=== PATIENT | female | born 1955 | race Hispanic/Latino ===

== ENCOUNTER → 2020-03-01 | Day surgery (SDC) | payer OTHER ==
[~2020-03-01] MED LIST: CO Q10100 MG PO; DOXYCYCLINE HY100 MG PO; FENTANYL CITRATE/PF 100MCG/2 ML INJ ONE; FISH OIL 1,001000 M1 PO; MIDAZOLAM HCL 2 MG/2 ML VIAL ONE; PANTOPRAZOLE SO40 MG PO; PROPOFOL IV EMULSION 10 MG/ML 50 ML VIAL ONE; VIT B3 PO
--- NOTE | 2020-03-01 07:10 | NUR ---
SPIRITUAL CARE - Pre-Surgery Assessment: Pt in bed. Pt reported supportive attention from family and friends. Intervention: I provided pastoral presence, hospitality, and sympathetic listening. I acquainted pt with availability of application coordinator while hospitalized. Outcome: Pt expressed appreciation for visit. No need for follow up indicated at this time. YANE Yehlain Spiritual Care Department O: [phone]
[2020-03-01 08:25] VITALS: BP 106/61
--- NOTE | 2020-03-01 10:09 | Operative Report ---
DATE OF PROCEDURE: 03/01/2020 SURGEON: Bandar Christian MD PROCEDURE: EGD with dilatation and biopsies. INDICATIONS FOR EGD: Dysphagia, upper abdominal pain. MEDICATIONS: The patient was done under MAC, please see anesthesiologist's note. PROCEDURE IN DETAIL: With the patient in left lateral decubitus position, flexible fiberoptic Olympus gastroscope was introduced into the esophagus under direct visualization without any difficulty. There was some patchy erythema noted in distal esophagus. A mild stricture was noted at the GE junction that was dilated to size 52-[place]. The scope was then advanced with ease into the stomach. Mucosa overlying the antrum and the body revealed some patchy erythema and moderate edema, and biopsies were obtained and sent to stain for H pylori. The pylorus was of normal contour and shape, was intubated with ease and the scope was advanced all the way to the second portion of the duodenum. Biopsies were obtained from the proximal second portion and duodenal bulb to rule out sprue. The scope was then withdrawn back into the stomach and retroflexed mucosa overlying the fundus and cardia appeared to be within normal limits. The scope was then straightened out, it was subsequently withdrawn, patient tolerated the procedure well. IMPRESSION: 1. Distal esophagitis, mild. 2. Esophageal stricture gastroesophageal junction, dilated to size 52-[place]. 3. Gastritis, biopsied, biopsies sent to stain for Helicobacter pylori. 4. Rule out sprue. PLAN: Follow up histology. Initiate Protonix 40 mg one p.o. q.a.m. a.c. Bandar Christian MD [facility] [place][id number] cc: Elle Peña MD
== END | disposition home or self-care (01) ==
LOC: OR 06:16
PROVIDERS: ATTEND Internal Medicine Gastroenterology
DX: K22.2 Esophageal obstruction (principal); K29.70 Gastritis, unspecified, without bleeding; K20.9 Esophagitis, unspecified; R00.1 Bradycardia, unspecified; R03.0 Elevated blood-pressure reading, without diagnosis of hypertension; Z88.6 Allergy status to analgesic agent; Z88.0 Allergy status to penicillin; Z68.25 Body mass index [BMI] 25.0-25.9, adult; Z86.010 Personal history of colon polyps
CPT/HCPCS: 43239; 43450; 93005; J2250; J2704; J3010

== ENCOUNTER → 2020-04-03 | Day surgery (SDC) | payer OTHER ==
[~2020-04-03] MED LIST changes: -FENTANYL CITRATE/PF 100MCG/2 ML INJ ONE; +GLUCAGON FOR INJ 1 MG VIAL ONE; +HYOSCYAMINE 0.125 MG TAB ONE; +LIDOCAINE HCL 2% LOCAL INJ 5 ML SDV VIAL INJ ONE; +PROPOFOL IV EMULSION 10 MG/ML 20 ML VIAL ONE; -PROPOFOL IV EMULSION 10 MG/ML 50 ML VIAL ONE
[2020-04-03 10:20] VITALS: BP 131/84
--- NOTE | 2020-04-03 10:33 | Operative Report ---
DATE OF PROCEDURE: 04/03/2020 SURGEON: Bandar Christian MD PROCEDURE: Colonoscopy with polypectomy. INDICATIONS FOR COLONOSCOPY: Colorectal cancer screening. MEDICATIONS: The patient was done under MAC. Please see anesthesiologist's note. PROCEDURE IN DETAIL: With the patient in left lateral decubitus position, a flexible fiberoptic Olympus colonoscope was inserted into the rectum with ease and advanced all the way to the cecum. Diverticular disease was scattered pretty much throughout the colon, but it was more prominent in the left colon. One polyp was hot snared from the ascending colon. One polyp was hot snared from the transverse colon. The scope was retroflexed into the distal rectum and small internal hemorrhoids were noted, none of which was actively bleeding. The scope was then straightened out. It was subsequently withdrawn. The patient tolerated the procedure well. IMPRESSION: 1. Ascending colon polyp, hot snared. 2. Diverticulosis. 3. Transverse colon polyp, hot snared. 4. Internal hemorrhoids, none actively bleeding. PLAN: Follow up histology. Initiate high-fiber, low-fat diet. Initiate high-fiber supplement. The patient might benefit from a followup colonoscopy in 3 years. Bandar Christian MD [facility] [place] /[id number] cc: Dr. Elle Peña
== END | disposition home or self-care (01) ==
LOC: OR 06:44
PROVIDERS: ATTEND Internal Medicine Gastroenterology
DX: Z12.11 Encounter for screening for malignant neoplasm of colon (principal); D12.2 Benign neoplasm of ascending colon; D12.3 Benign neoplasm of transverse colon; K57.30 Diverticulosis of large intestine without perforation or abscess without bleeding; K64.8 Other hemorrhoids; K29.70 Gastritis, unspecified, without bleeding; K20.9 Esophagitis, unspecified; R03.0 Elevated blood-pressure reading, without diagnosis of hypertension; Z88.6 Allergy status to analgesic agent; Z88.0 Allergy status to penicillin; M06.9 Rheumatoid arthritis, unspecified; K21.9 Gastro-esophageal reflux disease without esophagitis; Z01.810 Encounter for preprocedural cardiovascular examination; Z01.812 Encounter for preprocedural laboratory examination; Z11.59 Encounter for screening for other viral diseases; Z68.25 Body mass index [BMI] 25.0-25.9, adult; Z87.891 Personal history of nicotine dependence; Z80.0 Family history of malignant neoplasm of digestive organs
CPT/HCPCS: 45385; 87635; 93005; J1610; J2001; J2250; J2704